=== PATIENT | female | born 1940 | race Caucasian/White ===

== ENCOUNTER → 2016-05-07 | Outpatient (CLI) | payer OTHER, MEDICARE ==
--- NOTE | 2016-05-07 12:28 | MA ---
Screening Digital Mammogram Clinical Indications: Routine screening. Technique: Standard cephalocaudal and mediolateral oblique projections are obtained. An additional o blique lateral views performed of the right breast. This examination is processed by the [facility] [employer] [facility] aided detection system. Comparison: March 2015 and 2013, January 2013 and December 2011 Breast density: B; There are scattered fibroglandular densities. Findings: CAD was reviewed. No suspicious findings are identified. Impression: Negative mammogram. BI-RADS 1. Recommendation: Routine screening is recommended in one year. [facility] will send a result letter to the patient. Negative mammography should not preclude additional workup of a clinically suspicious finding. The patient's information is entered into a reminder system with a target due date for her next mammo gram.
== END ==
LOC: BRMIMAGING 11:25
DX: Z12.31 Encounter for screening mammogram for malignant neoplasm of breast (principal)
CPT/HCPCS: G0202

== ENCOUNTER → 2016-05-08 | Outpatient (CLI) | payer OTHER, MEDICARE ==
--- NOTE | 2016-05-08 09:49 | DX ---
Left Knee , 3 views, including a sunrise view History: Pain M 53.5 Comparison: None Findings: There is severe narrowing of the medial joint compartment with bone on bone, marginal scler osis and marginal spurring and associated linear joint vacuum phenomenon. There is mild widening of t he lateral joint compartment, indicating an element of instability. There is osteoarthritic change of the patellofemoral joint. There is a very large hypertrophic ridge , osteochondroma or osteochondrom atosis posterior to the femoral condyles. There are no erosions. Overall mineralization is normal.. Impression: 1. Osteoarthritis with mild instability. 2. Large bony density posterior to the femoral condyles, indeterminate in nature. Please see above. I f differentiation is important before knee surgery, then MRI or noncontrast CT could be performed.
== END ==
LOC: CIMAGING 08:31
PROVIDERS: ATTEND Family Medicine
DX: M17.12 Unilateral primary osteoarthritis, left knee (principal); R93.8 Abnormal findings on diagnostic imaging of other specified body structures; M54.5 Low back pain; Z00.01 Encounter for general adult medical examination with abnormal findings; R53.83 Other fatigue; E04.2 Nontoxic multinodular goiter; R73.9 Hyperglycemia, unspecified
CPT/HCPCS: 73562-PO; 80053-PO; 84439-PO; 84443-PO; 84481-PO; 85025-PO; 85652-PO

== ENCOUNTER → 2017-02-25 | Outpatient (CLI) | payer OTHER, MEDICARE | LOC: BHFA 11:30 | PROVIDERS: ATTEND Internal Medicine Cardiovascular Disease | DX: I48.91 Unspecified atrial fibrillation (principal) ==

== ENCOUNTER → 2017-03-02 | Outpatient (CLI) | payer OTHER, MEDICARE | LOC: BHFA 09:00 | PROVIDERS: ATTEND Internal Medicine Cardiovascular Disease | DX: R07.9 Chest pain, unspecified (principal) | CPT/HCPCS: 78452; 93017; A9500 ==

== ENCOUNTER → 2017-06-30 | Outpatient (CLI) | payer OTHER, MEDICARE | LOC: BRMIMAGING 07:43 | PROVIDERS: ATTEND Family Medicine | DX: Z12.31 Encounter for screening mammogram for malignant neoplasm of breast (principal) ==

== ENCOUNTER → 2017-07-23 | Outpatient (CLI) | payer OTHER, MEDICARE | LOC: BRMIMAGING 09:13 | PROVIDERS: ATTEND Family Medicine | DX: N63.20 Unspecified lump in the left breast, unspecified quadrant (principal) | CPT/HCPCS: 76641-PO ==

== ENCOUNTER → 2018-01-20 | Outpatient (CLI) | payer OTHER, MEDICARE | LOC: BRMIMAGING 13:04 | DX: M79.89 Other specified soft tissue disorders (principal); R60.0 Localized edema | CPT/HCPCS: 93971-PO ==

== ENCOUNTER → 2018-09-07 | Outpatient (CLI) | payer OTHER, MEDICARE | LOC: BRMIMAGING 14:18 ==